=== PATIENT | male | born 1960 ===

== ENCOUNTER 2018-05-07 13:58 | Outpatient (CLI) | payer OTHER ==
[~2018-05-07 13:58] MED LIST: DRAMAMINE LESS25 MG PO; HUMALOG100 U/ML SQ
== END 2018-05-07 14:17 | disposition home or self-care (01) ==
LOC: LAB 13:58
DX: N40.0 Benign prostatic hyperplasia without lower urinary tract symptoms (principal)

== ENCOUNTER 2018-06-07 13:27 | Outpatient (CLI) | payer OTHER | END 2018-06-07 13:38 | disposition home or self-care (01) | LOC: LAB 13:27 | DX: I11.9 Hypertensive heart disease without heart failure (principal); R30.0 Dysuria; N48.1 Balanitis; Z11.3 Encounter for screening for infections with a predominantly sexual mode of transmission; N40.0 Benign prostatic hyperplasia without lower urinary tract symptoms ==

== ENCOUNTER → 2018-06-24 | Emergency (ER) | payer OTHER, BC ==
[~2018-06-24] VITALS: Ht 177.8 cm; Wt 91.6 kg
[~2018-06-24] MED LIST changes: +ABACAVIR; +LAMIVUDINE; +LISINOPRIL10 MG; +VICTOZA 2-0.6 MG/0.1; +ZIDOVUDINE; +[UNRECOGNIZED DRUG - OTHER]
== END | disposition home or self-care (01) ==
LOC: ER 14:22
DX: E11.65 Type 2 diabetes mellitus with hyperglycemia (principal)